=== PATIENT | male | born 1980 | race Caucasian/White ===

== ENCOUNTER 2018-01-30 18:46 | Inpatient (IN) ==
--- NOTE | 2018-01-30 19:34 | Emergency Department Note ---
Disposition Clinical Impression: Atrial fibrillation with rapid ventricular response Chest pain Qualifiers: Chest pain type: unspecified Qualified Code(s): R07.9 - Chest pain, unspecified Disposition: Admitted As Inpatient Condition: Fair Referrals: Halle Veloz MD [Primary Care Provider] - Forms: ED Satisfaction Letter Time of Disposition: 20:44 Chest Pain HPI - General Chief Complaint: ED Chest Pain Stated Complaint: chest discomfort Time Seen by Provider: 01/30/18 19:15 Source: patient Mode of arrival: ambulatory Limitations: no limitations Vital Signs Reviewed: Yes Nursing Notes Reviewed: Yes - History of Present Illness HPI Narrative: 37-year-old who presents with chest discomfort indigestion-like discomfort to the ER. On arrival he is noted to be in atrial fibrillation which is new for him. Patient does have family history of heart disease. Otherwise he has no risk factors. Pt complaint: chest pain Onset (ago): Just R[employer]TER Duration: constant Onset: during rest Pain Location: substernal, left chest Severity: mild Quality: other (Indigestion-like) Pain Radiation: none Improves with: nothing Worsens with: nothing Associated symptoms: Reports: palpitations Treatments prior to arrival chest pain: none - Related Data Allergies Allergy/AdvReac Type Severity Reaction Status Date / Time No Known Allergies Allergy Verified 01/30/18 19:01 Constitutional: Denies: fever, chills, weakness, weight change Eyes: Denies: eye pain, eye discharge, vision change ENT ED: Denies: ear pain, throat pain, dental pain, hearing loss, epistaxis, congestion, dysphagia Cardiovascular: Reports: chest pain, palpitations. Denies: dyspnea on exertion , edema, syncope Respiratory: Denies: cough, dyspnea, wheezes, hemoptysis, stridor Gastrointestinal: Denies: abdominal pain, nausea, vomiting, diarrhea, constipation, hematemesis, melena, hematochezia Genitourinary: Denies: urgency, dysuria, frequency, hematuria Musculoskeletal: Denies: back pain, neck pain, arthralgia, myalgia Integumentary: Denies: rash, abrasion, lesions Neurological: Denies: headache, weakness, numbness, paresthesias, confusion, abnormal gait, vertigo Psychiatric: Denies: anxiety, depression, suicidal thoughts, homicidal thoughts , auditory hallucinations, visual hallucinations Endocrine: Denies: fatigue Hematological/Lymphatic: Denies: easy bleeding, easy bruising Allergic/Immunologic: Denies: facial swelling, urticaria Chest Pain PMH - Past Medical History Medical history: Reports: no medical history Psychiatric history: Reports: anxiety - Social History Smoking Status: Never smoker Alcohol use: Reports: occasionally Drug use: Reports: none Physical Exam - General Limitations: no limitations General appearance: alert - Head Head exam: atraumatic, normocephalic, normal inspection - Eye Eye exam: Present: normal appearance, PERRL, EOMI - ENT ENT exam: normal exam, normal oropharynx, mucous membranes moist - Neck Neck exam: Present: normal inspection, full ROM, trachea midline - Chest Chest inspection: Present: normal inspection, symmetric chest wall rise - Respiratory Respiratory exam: Present: normal lung sounds bilaterally - Cardiovascular Cardiovascular exam: Present: tachycardia, irregular rhythm - Abdominal Exam Abdominal exam: Present: soft, Non-Tender. Absent: tenderness, distention, guarding, rebound, rigidity - Extremities Exam Extremities exam: Present: normal inspection, full ROM. Absent: tenderness, pedal edema - Expanded Lower Extremity Exam Neurovascular/Tendon exam: Absent: motor deficit, sensory deficit, tendon deficit Gait: observed and normal - Back Exam Back exam: Present: normal inspection, full ROM. Absent: tenderness - Neurological Exam Neurological exam: Present: alert, oriented X3 - Psychiatric Psychiatric exam: Present: normal affect, normal mood - Skin Skin exam: Present: warm, dry, intact, normal color Course - Reevaluation(s) Reevaluation #1: 37-year-old who came in complaining of some palpitations and chest discomfort was found to be in A. fib with RVR. Cardiology consultation obtained the patient does have a controlled rate at the moment [facility] Time: 20:43 - Consultations Consultation #1: Discussed with , admit. Time: 20:31 Consultation #2: Discussed with Dr.Lale admit. Time: 20:43 Vital Signs Temperature 98.3 F 01/30/18 18:56 Pulse Rate 82 01/30/18 18:56 Respiratory Rate 18 01/30/18 18:56 Blood Pressure 139/79 01/30/18 18:56 O2 Sat by Pulse Oximetry 98 01/30/18 18:56 Temperature 98.3 F 01/30/18 18:56 Pulse Rate 93 01/30/18 19:43 Respiratory Rate 18 01/30/18 19:43 Blood Pressure 123/67 01/30/18 19:43 O2 Sat by Pulse Oximetry 94 01/30/18 19:43 Oxygen Delivery Oxygen Delivery Room Air Chest Pain - Lab Data Result diagrams: 01/30/18 19:38 01/30/18 19:38 Lab Results 01/30/18 01/30/18 01/30/18 Range/Units 19:38 19:38 19:38 WBC 5.4 (4.3-11.1) K/mcL RBC 5.60 H (4.19-5.50) M/mcL Hgb 15.6 (12.9-16.9) g/dL Hct 47.0 (37.5-50.1) % MCV 83.9 (83.0-100.0) fL MCH 27.9 L (28.0-33.3) pg MCHC 33.2 (31.6-35.5) g/dL RDW 13.0 (11.5-14.5) % Plt Count 200 (140-400) K/mcL MPV 11.1 (9.4-12.4) fL Immature Gran % 0.4 (0-4) % Seg Neutrophils % 48.0 % Lymphocytes % 38.2 % Monocytes % 9.9 % Eosinophils % 2.6 % Basophils % 0.9 % Neutrophils # 2.6 (1.6-8.9) K/mcL Lymphocytes # 2.1 (0.6-4.6) K/mcL Monocytes # 0.5 (0.0-1.3) K/mcL Eosinophils # 0.1 (0.0-0.6) K/mcL Basophils # 0.1 (0.0-0.2) K/mcL Sodium 140 (136-145) mEq/L Potassium 4.2 (3.5-5.1) mEq/L Chloride 107 (98-107) mEq/L Carbon Dioxide 27 (23-29) mEq/L BUN 14 (6-20) mg/dL Creatinine 1.35 H (0.70-1.30) mg/dL Est GFR ( Amer) > 60 (> 60) Est GFR (Non-Af Amer) 59 L (> 60) BUN/Creatinine Ratio 10 (6-26) Glucose 63 L (70-105) mg/dL Calculated Osmolality 289 (280-300) Calcium 9.9 (8.6-10.3) mg/dL Troponin I < 0.03 (< 0.04) ng/mL TSH 1.818 (0.340-5.600) mcIU/mL - EKG Data EKG attestation: Yes I reviewed and interpreted this EKG. Rate: tachycardia Rhythm: A.Fib [place]/QRS: normal Interpretation: no acute changes Heart Score - Score History: Slightly Suspicious EKG: Non Specific repolarisation Disturbance Age: Less than 45 Risk Factors: 1-2 risk factors Troponin: Less than normal limit HEART Score Total: 2
[2018-01-30 19:59] LABS: Basophils # 0.1 K/mcL (0.0-0.2); Basophils % 0.9 %; Eosinophils # 0.1 K/mcL (0.0-0.6); Eosinophils % 2.6 %; Hemoglobin 15.6 g/dL (12.9-16.9); Immature Granulocytes % 0.4 % (0-4); Lymphocytes # 2.1 K/mcL (0.6-4.6); Lymphocytes % 38.2 %; Mean Corpuscular HGB Conc 33.2 g/dL (31.6-35.5); Mean Corpuscular Hemoglobin 27.9 pg (28.0-33.3); Mean Corpuscular Volume 83.9 fL (83.0-100.0); Mean Platelet Volume 11.1 fL (9.4-12.4); Monocytes # 0.5 K/mcL (0.0-1.3); Monocytes % 9.9 %; Neutrophils # 2.6 K/mcL (1.6-8.9); Platelet Count 200 K/mcL (140-400)
[2018-01-30 20:20] LABS: BUN/Creatinine Ratio 10 (6-26); Blood Urea Nitrogen 14 mg/dL (6-20); Calcium 9.9 mg/dL (8.6-10.3); Carbon Dioxide 27 mEq/L (23-29); Chloride 107 mEq/L (98-107); Glucose 63 mg/dL (70-105); Osmolality,Calculated 289 (280-300); Potassium 4.2 mEq/L (3.5-5.1); Sodium 140 mEq/L (136-145); eGFR For Non-African Americans 59 (> 60)
[2018-01-30 20:21] LABS: Troponin I < 0.03 ng/mL (< 0.04)
[2018-01-30] MEDS ORDERED: *HR* Enoxaparin 120 MG/0.8 ML SYRINGE SQ STA (20:32)
[2018-01-31] MEDS ORDERED: Naloxone 0.4 MG/ML INJ IVP PRN (01:45)
--- NOTE | 2018-01-31 03:57 | Internal Med History&Physical ---
Date of Encounter: 01/31/18 Time of Encounter: 00:40 Assessment and Plan (1) DVT prophylaxis Current visit: Yes Status: Acute Patient is young and ambulating well. ER has given patient 1 dose of full dose Lovenox. Patient has low risk for DVT, no further anticoagulation at this point (2) Atrial fibrillation with rapid ventricular response Current visit: Yes Status: Acute Etiology is undetermined. TSH is within normal limits. Will check magnesium and potassium level in a.m. Heart rate get down to 80s when patient is at rest. - Continue cardiac monitoring. - Echocardiogram in a.m. - CHADS-VASC2 score 0, lovenox one dose has been given in ER. - Cardiology consult for further management Internal Medicine - H&P: HPI Chief complaint: Palpitation Admitted From: Home Plans for Post Hospital Care: Home History of present illness: Mr. Rico is a 37 year old male without significant past medical history of present to ER for palpitation. Patient said that since Wednesday and ( 3-4 days ago), he feels chest discomfort like the feeling of reflex. Patient denies chest pain. Patient even went to hand compositor on Wednesday and had about 40 minutes exercise. Since Wednesday morning, he started feels palpitation, was lightheaded, and the shortness of breath. Patient still denies chest pain. No nausea. No diaphoresis. In ER, he was found A. fib with RVR. Patient was treated with Lovenox 120mg SC. His heart rate get down to 80-90s without intervention. ER called cardiology for consult. Patient was admitted for further management. Past Med Surg Social Fam HX - Past Medical History Medical history: no medical history Psychiatric history: anxiety - Social History Smoking Status: Never smoker Smokeless Tobacco Status: Yes Alcohol use: occasionally Drug use: none - Family History Father Age: 70 Living Status: Still Living Hx Family Cardiac Disorders: Yes Mother Living Status: Still Living Hx Family Cancer: Yes (breast cancer) Internal Medicine - H&P: Meds 3 Allergy/AdvReac Type Severity Reaction Status Date / Time No Known Allergies Allergy Verified 01/30/18 19:01 All Systems PM: A 10-system review of systems was performed and is negative for pertinent findings except as documented above in the HPI. - Constitutional Vitals: Temp Pulse Resp BP Pulse Ox 98.3 F 81 16 127/77 97 01/30/18 22:43 01/30/18 22:43 01/30/18 22:43 01/30/18 22:43 01/30/18 22:43 General appearance: Present: A&O X 3, no acute distress, answers questions appropriately - Head Head exam: Present: atraumatic, normocephalic - Eye Eye exam: Present: PERRL, conjuntiva pink, sclera anicteric Pupils: Present: PERRL - Neck Neck exam general surgery: Present: supple, trachea midline. Absent: lymphadenopathy - Respiratory Respiratory exam: Present: CTAB. Absent: accessory muscle use, rales, rhonchi, wheezes - Cardiovascular Cardiovascular exam: Present: irregular rhythm, +S1, +S2. Absent: diastolic murmur, gallop, rubs, systolic murmur - GI/Abdominal GI/Abdominal exam: Present: normal bowel sounds, soft, no peritoneal signs. Absent: distended, tenderness - Extremities Exam Extremities exam: Present: warm, radial pulses palpable and symmetrical. Absent : calf tenderness, cyanotic, pedal edema - Neurological Exam Neurological exam: Present: CN II-XII intact, oriented X3, no focal deficits. Absent: pronater drift, facial droop, speech deficit - Skin Skin exam: Present: dry, intact Internal Med - H&P Results - Labs CBC & Chem 7: 01/30/18 19:38 01/30/18 19:38 - EKG Data -: EKG Interpreted by Myself Rate: tachycardia (A. fib)
[2018-01-31 07:38] LABS: INR 1.1; Prothrombin Time 12.3 Seconds (9.4-12.1)
[2018-01-31 07:51] LABS: BUN/Creatinine Ratio 14 (6-26); Blood Urea Nitrogen 17 mg/dL (6-20); Calcium 9.5 mg/dL (8.6-10.3); Carbon Dioxide 22 mEq/L (23-29); Chloride 108 mEq/L (98-107); Glucose 94 mg/dL (70-105); Magnesium 2.1 mg/dL (1.6-2.6); Osmolality,Calculated 293 (280-300); Potassium 4.1 mEq/L (3.5-5.1); Sodium 141 mEq/L (136-145); eGFR For Non-African Americans > 60 (> 60)
[2018-01-31 08:26] LABS: Basophils # 0.1 K/mcL (0.0-0.2); Basophils % 0.9 %; Eosinophils # 0.1 K/mcL (0.0-0.6); Eosinophils % 1.5 %; Hematocrit 46.9 % (37.5-50.1); Hemoglobin 15.9 g/dL (12.9-16.9); Immature Granulocytes % 0.3 % (0-4); Lymphocytes # 2.5 K/mcL (0.6-4.6); Lymphocytes % 37.5 %; Mean Corpuscular HGB Conc 33.9 g/dL (31.6-35.5); Mean Corpuscular Hemoglobin 28.5 pg (28.0-33.3); Mean Corpuscular Volume 84.2 fL (83.0-100.0); Mean Platelet Volume 11.5 fL (9.4-12.4); Monocytes # 0.5 K/mcL (0.0-1.3); Monocytes % 7.2 %; Neutrophils # 3.4 K/mcL (1.6-8.9); Platelet Count 196 K/mcL (140-400); Red Blood Count 5.57 M/mcL (4.19-5.50); Red Cell Distribution Width 13.3 % (11.5-14.5); Segmented Neutrophils % 52.6 %
--- NOTE | 2018-01-31 11:18 | Cardiology Consult Note ---
<Jack Parry Sam - Last Filed: 01/31/18 11:51> Date of Encounter: 01/31/18 Time of Encounter: 11:15 Assessment and Plan (1) Atrial fibrillation with rapid ventricular response Current Visit: Yes Status: Acute Per Cardiology: Apparent new onset atrial fibrillation. Currently in sinus rhythm in the 60s to 70s. Not on rate controlling agents. Will add CCB. SBP stable. Troponin negative, TSH and magnesium okay. Consider outpatient sleep study to eval for WESTLEY. Smokeless tobacco cessation encouraged. Echo pending. Further recommendations pending echo. Regarding long-term anticoagulation, [id number] = 0. Recommend asa. Discussion w patient/family: The assessment and plan as outlined above was discussed with the patient who expressed understanding and agreement. All questions were answered. Thank you for involving us in the care of your patient. Please call with any questions. History of Present Illness Consult date: 01/31/18 Requesting physician: Dexter Barrera Consult reason: Afib Chief complaint: palps History of present illness: Mr. Rico is a 37 year old male with hx of anxiety and smokeless tobacco. Cardiac consult for new A. fib. Patient reports increased palpitations with short of breath and lightheadedness with fatigue over the past 4-5 days intermittently. He reports recently began working out exercising over the past 1-1/2-2 weeks with attempt at weight loss. He denies any weight loss supplements or stimulants. He denies any smoking, however does utilize smokeless tobacco. He denies any recent infectious process. Denies any excessive alcohol intake-- reports 2 beers Wednesday evening which usually has 2 beers on weekends. He denies any past history of sleep apnea, reports he does snore. Denies any past history of atrial fibrillation. Denies any diabetes, CAD, hypothyroidism. No immediate family history for heart disease. Reports past history of palpitations intermittently over the past few years. Reports negative stress test a few years ago (no records noted). Past Med Surg Social Fam HX - Past Medical History Attestation: Yes The following information was validated with the patient. Source: patient, old records reviewed Medical history: no medical history Psychiatric history: anxiety - Social History Smoking Status: Never smoker Smokeless Tobacco Status: Yes Alcohol use: occasionally Drug use: none - Family History Father Age: 70 Living Status: Still Living Hx Family Cardiac Disorders: Yes Mother Living Status: Still Living Hx Family Cancer: Yes (breast cancer) Medications and Allergies No Known Home Drugs 01/31/18 [History] 3 Allergy/AdvReac Type Severity Reaction Status Date / Time No Known Allergies Allergy Verified 01/31/18 09:49 All Systems Review: The remainder of the systems were reviewed and are negative - Cardiovascular Cardiovascular: as per HPI, chest pain at rest, dyspnea at rest, dyspnea on exertion, irregular heart rhythm, lightheadedness, palpitations Physical Examination Vital Signs, Last 4 Hours Pulse Ox 01/31/18 08:35 97 Selected Entries 01/31/18 06:59 01/31/18 08:35 Temperature 97.8 F Pulse Rate 57 Respiratory Rate 16 Blood Pressure 124/79 O2 Sat by Pulse Oximetry 97 Oxygen Delivery Method Room Air General: Conversant, No Apparent Distress HEENT: Atraumatic, Normocephaly, Mucus Membranes Moist Neck: No JVD, Normal carotid pulses Cardiac: Reg Rate and Rhythm, Normal S1 and S2, No Murmur Lungs: Normal Breath Sounds, No Wheeze, Rales, Rhonchi Neuro: Alert and responsive, No focal deficits noted Abdomen: Soft, Non-Tender Skin: No rashes noted on visualized skin Musculoskeletal: No Chest Wall Tenderness Extremities: No Clubbing, No Cyanosis, No Edema, Normal Pulses Results 01/31/18 05:57 01/31/18 05:57 Lab Results Laboratory Tests 01/30/18 01/30/18 01/31/18 19:38 19:38 05:57 INR 1.1 Potassium Creatinine 1.35 H Est GFR (Non-Af Amer) 59 L Magnesium Troponin I < 0.03 TSH 1.818 01/31/18 05:57 INR Potassium 4.1 Creatinine 1.24 Est GFR (Non-Af Amer) > 60 Magnesium 2.1 Troponin I TSH ITS Impressions Chest X-Ray 01/30/18 19:03 IMPRESSION: No acute disease. D/ / María Garcia Cha, MD / María Garcia Cha, MD Interpreting Provider: María Garcia Cha, MD Active Medications Naloxone HCl (Narcan) 0.4 mg IVP Q2MIN PRN PRN Reason: SEE COMMENTS Stop: 08/02/18 01:46 - Imaging and Cardiology Echo: pending - EKG Interpretation EKG results cardiology: personally reviewed (A. fib in the 120s), other ( Currently sinus rhythm in the 60s to 70s, average heart rate the past 24 hours 73, longest pause 2.8 seconds while in A. fib) Consult Discharge Plan - Plan Referrals: Halle Veloz MD [Primary Care Provider] - <GeetabetzyMaria G - Last Filed: 01/31/18 16:50> Date of Encounter: 01/31/18 - Attending Attestation I examined this patient and my medical decision-making was reviewed with the NAILHEAD SETTER. I agree with the documented findings, disposition and treatment plan as described. Mr. Rico presents with new onset atrial fibrillation, now in normal sinus rhythm. Troponin negative, TSH and magnesium appropriate. Echo demonstrates no structural abnormalities. Discussed etiology of new onset atrial fibrillation with this young gentleman. Possibly familial in origin. Agree with consideration for sleep study to rule out WESTLEY as outpatient. Possibly an element of volume depletion - recently started exercising and now with orthostasis symptoms. Also describes dizziness when turning head in bed. May need ENT evaluation for BPV as an outpatient. Recommend hydration for now. CHADSVASC is zero. Discussed afib and potential risk for CVA. Will start aspirin. Recommend PO cardizem. Assessment and Plan Discussion w patient/family: The assessment and plan as outlined above was discussed with the patient and/or family members who expressed understanding and agreement. All questions were answered. Thank you for involving us in the care of your patient. Please call with any questions. History of Present Illness History of present illness: Mr. Rico is a 37 year old male All Systems Review: The remainder of the systems were reviewed and are negative Physical Examination Vital Signs, Last 4 Hours Temp Pulse Resp BP Pulse Ox 01/31/18 15:52 98.3 F 62 16 117/76 98 Results 01/31/18 05:57 01/31/18 05:57 Lab Results 01/31/18 01/31/18 01/31/18 05:57 05:57 05:57 WBC 6.5 Hgb 15.9 Hct 46.9 Plt Count 196 INR 1.1 Sodium 141 Potassium 4.1 Chloride 108 H Carbon Dioxide 22 L BUN 17 Creatinine 1.24 Glucose 94 Calcium 9.5 Magnesium 2.1
--- NOTE | 2018-01-31 12:25 | Internal Med Progress Note ---
Date of Encounter: 01/31/18 Time of Encounter: 12:23 - Assessment and plan (1) Atrial fibrillation with rapid ventricular response Current Visit: Yes Status: Acute Assessment and plan: Etiology is undetermined. TSH is within normal limits. Reviewing telemetry at bedside, patient is normal sinus rhythm - Continue cardiac monitoring. - Echocardiogram done, pending results - CHADS-VASC2 score 0, lovenox one dose has been given in ER. - Cardiology consult for further management (2) Elevated serum creatinine Current Visit: Yes Status: Acute Assessment and plan: Creatinine 1.35 on admission. Possibly acute kidney injury though there is no baseline established. Today creatinine improved to 1.24 (3) DVT prophylaxis Current Visit: Yes Status: Acute - Subjective Interval history: No complaints, no acute events. States weakness and palpitations resolved. Denies chest pain, SOB, N/V - Constitutional Vitals: Temp Pulse Resp BP Pulse Ox 98.3 F 59 16 108/75 98 01/31/18 12:11 01/31/18 12:11 01/31/18 12:11 01/31/18 12:11 01/31/18 12:11 General appearance: Present: A&O X 3, no acute distress, answers questions appropriately - Head Head exam: Present: atraumatic, normocephalic - Eye Eye exam: Present: PERRL, conjuntiva pink, sclera anicteric Pupils: Present: PERRL - Neck Neck exam general surgery: Present: supple, trachea midline. Absent: lymphadenopathy - Respiratory Respiratory exam: Present: CTAB. Absent: accessory muscle use, rales, rhonchi, wheezes - Cardiovascular Cardiovascular exam: Present: RRR, +S1, +S2. Absent: diastolic murmur, gallop, rubs, systolic murmur - GI/Abdominal GI/Abdominal exam: Present: normal bowel sounds, soft, no peritoneal signs. Absent: distended, tenderness - Extremities Exam Extremities exam: Present: warm, radial pulses palpable and symmetrical. Absent : calf tenderness, cyanotic, pedal edema - Neurological Exam Neurological exam: Present: CN II-XII intact, oriented X3, no focal deficits. Absent: pronater drift, facial droop, speech deficit - Skin Skin exam: Present: dry, intact Internal Medicine: Result - Labs CBC & Chem 7: 01/31/18 05:57 01/31/18 05:57 Labs: Short CBC 01/31/18 Range/Units 05:57 WBC 6.5 (4.3-11.1) K/mcL Hgb 15.9 (12.9-16.9) g/dL Hct 46.9 (37.5-50.1) % Plt Count 196 (140-400) K/mcL Neutrophils # 3.4 (1.6-8.9) K/mcL BMP 01/31/18 05:57 Sodium 141 Potassium 4.1 Chloride 108 H Carbon Dioxide 22 L BUN 17 Creatinine 1.24 Glucose 94 Calcium 9.5 - ABG Interpretation ABG results: PT/INR, D-dimer PT 12.3 Seconds (9.4-12.1) H 01/31/18 05:57 Consult Discharge Plan - Plan Referrals: Halle Veloz MD [Primary Care Provider] -
[2018-01-31] MEDS: Diltiazem CD (24hr) 120 MG CAPSULE PO SCH (12:47)
[2018-01-31] MEDS: Aspirin 81 MG TAB.CHEW PO SCH (12:47)
[2018-01-31] MEDS: 0.9 % Sodium Chloride 1,000 ML IVC SCH (17:40)
[2018-01-31] MEDS ORDERED: Acetaminophen 325 MG TABLET PO PRN (23:11)
[2018-02-01] MEDS: 0.9 % Sodium Chloride 1,000 ML IVC SCH (03:34)
[2018-02-01 04:29] LABS: BUN/Creatinine Ratio 12 (6-26); Blood Urea Nitrogen 14 mg/dL (6-20); Calcium 9.3 mg/dL (8.6-10.3); Carbon Dioxide 26 mEq/L (23-29); Chloride 109 mEq/L (98-107); Glucose 96 mg/dL (70-105); Osmolality,Calculated 290 (280-300); Potassium 4.3 mEq/L (3.5-5.1); Sodium 140 mEq/L (136-145); eGFR For Non-African Americans > 60 (> 60)
[2018-02-01 07:01] VITALS: BP 105/62
[2018-02-01] MEDS: Aspirin 81 MG TAB.CHEW PO SCH (08:55)
[2018-02-01] MEDS: Diltiazem CD (24hr) 120 MG CAPSULE PO SCH (08:55)
--- NOTE | 2018-02-01 11:20 | Cardiology Progress Note ---
Date of Encounter: 02/01/18 Time of Encounter: 09:45 Assessment and Plan (1) Atrial fibrillation with rapid ventricular response Current Visit: Yes Status: Acute Per Cardiology: Apparent new onset atrial fibrillation. Currently in sinus rhythm in the 50's - 60's. Now on Cardizem CD 120mg PO daily. SBP stable. Troponin negative, TSH and magnesium okay. Consider outpatient sleep study to eval for WESTLEY. Smokeless tobacco cessation encouraged. Echo showed preserved EF, no significant valvular dysfunction, NSWMA. Regarding long-term anticoagulation, [id number] = 0. On asa. Cardiology will sign off, reconsult as needed, follow-up arranged. Discussion w patient/family: The assessment and plan as outlined above was discussed with the patient who expressed understanding and agreement. All questions were answered. Thank you for involving us in the care of your patient. Please call with any questions. Subjective Principal diagnosis: Afib Interval history: Patient reports resolution of symptoms. He denies any further dizziness/ lightheadedness, denies any palpitations, short of breath, or fatigue. Ambulate in hallways with no difficulty. Objective Selected Entries 02/01/18 05:00 02/01/18 06:59 02/01/18 08:00 Temperature 97.7 F Pulse Rate 54 Blood Pressure 105/62 O2 Sat by Pulse Oximetry 98 Oxygen Delivery Method Room Air General: Conversant, No Apparent Distress HEENT: Atraumatic, Normocephaly, Mucus Membranes Moist Neck: No JVD, Normal carotid pulses Cardiac: Reg Rate and Rhythm, Normal S1 and S2, No Murmur Lungs: Normal Breath Sounds, No Wheeze, Rales, Rhonchi Neuro: Alert and responsive, No focal deficits noted Abdomen: Soft, Non-Tender Skin: No rashes noted on visualized skin Musculoskeletal: No Chest Wall Tenderness Extremities: No Clubbing, No Cyanosis, No Edema, Normal Pulses Results 01/31/18 05:57 02/01/18 03:29 Lab Results 02/01/18 03:29 Sodium 140 Potassium 4.3 Chloride 109 H Carbon Dioxide 26 BUN 14 Creatinine 1.18 Glucose 96 Calcium 9.3 Impressions Echocardiogram 01/31/18 01:49 Impressions: LVEF 55-60%. Normal LV chamber size, wall thickness and function. Normal left ventricular diastolic function. Normal right ventricular structure and function. No evidence of pulmonary hypertension. No significant valvular dysfunction. Left Ventricular Wall Motion: Rest Echo Findings All wall segments showed normal motion. Findings: Study Quality * Technically adequate exam. ECG Findings * Normal sinus rhythm. Left Ventricle * LVEF 55-60%. * Normal LV chamber size, wall thickness and function. * Normal left ventricular diastolic function. Right Ventricle * Normal right ventricular structure and function. Left Atrium * Mildly dilated left atrium. Right Atrium * Normal right atrial size. Interatrial Septum * Interatrial septum not well evaluated. Aortic Valve * Trileaflet aortic valve with normal function. * No aortic regurgitation. * No aortic stenosis. Mitral Valve * Normal mitral valve structure and function. * No mitral regurgitation. * No mitral stenosis. Tricuspid Valve * Normal tricuspid valve structure. * Trace tricuspid regurgitation. * No evidence of pulmonary hypertension. Pulmonic Valve * Normal pulmonic valve structure and function. * No pulmonic regurgitation. Aorta * Normally sized aortic root. Pericardium * The pericardium appears normal. IVC * The IVC is not well evaluated. Pulmonary Artery * Normal visualized portions of the main pulmonary artery. Active Medications Acetaminophen (Tylenol) 650 mg PO Q6HR PRN PRN Reason: Fever Stop: 08/02/18 23:12 Aspirin (Aspirin) 81 mg PO DAILY [facility] Stop: 08/02/18 12:01 Last Admin: 02/01/18 08:55 Dose: 81 mg Diltiazem HCl (Cardizem Cd) 120 mg PO DAILY [facility] Stop: 08/02/18 12:01 Last Admin: 02/01/18 08:55 Dose: 120 mg Sodium Chloride (0.9 % Sodium Chloride) 1,000 mls @ 100 mls/hr IVC .Q10H [facility] Stop: 08/02/18 17:01 Last Admin: 02/01/18 03:34 Dose: 100 mls/hr Naloxone HCl (Narcan) 0.4 mg IVP Q2MIN PRN PRN Reason: SEE COMMENTS Stop: 08/02/18 01:46 - Imaging and Cardiology Echo: report reviewed - EKG Interpretation EKG results cardiology: other (Telemetry reviewed with average heart rate 58 the past 12 hours, sinus bradycardia to sinus rhythm currently sinus bradycardia in the upper 50s, no recurrent A. fib noted) Consult Discharge Plan - Plan Referrals: Halle Veloz MD [Primary Care Provider] -
--- NOTE | 2018-02-01 12:22 | Discharge Summary ---
Date of Encounter: 02/01/18 Time of Encounter: 12:21 - Discharge Diagnosis (1) Atrial fibrillation with rapid ventricular response Priority: Primary Status: Acute Code(s): I48.91 - Unspecified atrial fibrillation (2) Chest pain Priority: Secondary Status: Acute Qualifiers: Chest pain type: unspecified Qualified Code(s): R07.9 - Chest pain, unspecified (3) Elevated serum creatinine Priority: Secondary Status: Acute Code(s): R79.89 - Other specified abnormal findings of blood chemistry Hospital course: Mr. Rico is a 37 year old man who reported increased palpitations with short of breath and lightheadedness with fatigue for 4-5 days prior to admission. He reports recently began working out exercising over the past 1-1/2-2 weeks with attempt at weight loss. He denies any weight loss supplements or stimulants. He denies any smoking, however does utilize smokeless tobacco. He denies any recent infectious process. Denies any excessive alcohol intake-- reports 2 beers Wednesday evening which usually has 2 beers on weekends. He denies any past history of sleep apnea, reports he does snore. Denies any past history of atrial fibrillation. Denies any diabetes, CAD, hypothyroidism. No immediate family history for heart disease. Reports past history of palpitations intermittently over the past few years. He was started on Cardizem CD 120mg PO daily and is rate and rhythm controlled. He does not require anticoagulation but should be on aspirin 81 mg daily. Assessment and plan (1) Atrial fibrillation with rapid ventricular response - Patient is normal sinus rhythm - Continue cardiac monitoring. - CHADS-VASC2 score 0, Continue aspirin. No anticoagulation needed - Cardiology consult appreciated (2) Elevated serum creatinine Creatinine 1.35 on admission. Possibly acute kidney injury though there is no baseline established. Today creatinine improved to 1.24 (3) DVT prophylaxis Current Visit: Yes Status: Acute Discharge discussed with: patient, family Time spent discussing smoking cessation with patient: more than 10 minutes - Time Spent with Patient Total time spent providing and/or coordinating discharge services: Greater than 30 minutes - Discharge Medications Prescriptions: Aspirin 81 mg PO DAILY 30 Days #30 tab.chew Diltiazem CD (24hr) [Cardizem CD] 120 mg PO DAILY 30 Days #30 cap.er.24h Home Medications: Aspirin 81 mg PO DAILY 30 Days #30 tab.chew 02/01/18 [Rx] Diltiazem CD (24hr) [Cardizem CD] 120 mg PO DAILY 30 Days #30 cap.er.24h [Rx] Allergies/Adverse Reactions: 3 Allergy/AdvReac Type Severity Reaction Status Date / Time No Known Allergies Allergy Verified 01/31/18 09:49 Date of admission: 01/31/18 03:13 Primary care physician: aHlle Veloz MD - Constitutional Vitals: Temp Pulse Resp BP Pulse Ox 97.7 F 54 16 105/62 98 02/01/18 06:59 02/01/18 06:59 02/01/18 05:00 02/01/18 06:59 02/01/18 05:00 General appearance: Present: A&O X 3, no acute distress, answers questions appropriately - Head Head exam: Present: atraumatic, normocephalic - Eye Eye exam: Present: PERRL, conjuntiva pink, sclera anicteric Pupils: Present: PERRL - Neck Neck exam general surgery: Present: supple, trachea midline. Absent: lymphadenopathy - Respiratory Respiratory exam: Present: CTAB. Absent: accessory muscle use, rales, rhonchi, wheezes - Cardiovascular Cardiovascular exam: Present: RRR, +S1, +S2. Absent: diastolic murmur, gallop, rubs, systolic murmur - GI/Abdominal GI/Abdominal exam: Present: normal bowel sounds, soft, no peritoneal signs. Absent: distended, tenderness - Extremities Exam Extremities exam: Present: warm, radial pulses palpable and symmetrical. Absent : calf tenderness, cyanotic, pedal edema - Neurological Exam Neurological exam: Present: CN II-XII intact, oriented X3, no focal deficits. Absent: pronater drift, facial droop, speech deficit - Skin Skin exam: Present: dry, intact - Patient Status Disposition: Home, Self-Care Condition: Fair - Discharge Instructions Instructions: Diltiazem (By mouth), Aspirin (By mouth), Atrial Fibrillation (DC ), Chest Pain (DC) Follow Up With: Halle Veloz MD [Primary Care Provider] -
--- NOTE | 2018-02-01 17:58 | Electrocardiograph Report ---
[place] [id number] Test Date: 2018-01-31 Pat Name: Benitez Rico Department: 111 Room: [facility] Gender: M Conciliator: DEEPTHI : 1980 Requested By: Tawnya Banegas Order Number: [id number] Reading MD: Halle Painting Measurements Intervals [place] Rate: 60 P: 36 AL: 194 QRS: 4 QRSD: 106 T: 36 QT: 423 QTc: 424 Interpretive Statements SINUS RHYTHM Electronically Signed On 02-01-2018 17:56:48 EST by Halle Painting
--- NOTE | 2018-02-01 17:59 | Electrocardiograph Report ---
[address] [address] Test Date: 2018-01-30 Pat Name: Benitez Rico Department: 104 Room: 2N4 Gender: M [employer] Consultant: : 1980 Requested By: Chuy Silva Order Number: [id number] Reading MD: Halle Painting Measurements Intervals [place] Rate: 128 P: [place]: 0 QRS: -7 QRSD: 100 T: 65 QT: 308 QTc: 384 Interpretive Statements ATRIAL FIBRILLATION WITH RAPID VENTRICULAR RESPONSE WITH ABERRANT CONDUCTION OR VENTRICULAR PREMATURE COMPLEXES INCOMPLETE RIGHT BUNDLE BRANCH BLOCK ABNORMAL RHYTHM ECG Electronically Signed On 02-01-2018 17:58:08 EST by Halle Painting
== END 2018-02-01 13:09 | disposition home or self-care (01) | DRG 309 ==
LOC: EMEROO 18:46 → 2NENU 18:46
PROVIDERS: ADMIT Internal Medicine; ATTEND Student in an Organized Health Care Education/Training Program